=== PATIENT | female | born 1980 | race Caucasian/White ===

== ENCOUNTER 2017-02-05 18:31 | Emergency (ER) | payer MEDICAID, MEDICARE ==
[2017-02-05] MEDS ORDERED: NS 0.9% 1000 ML* 2,000 ML IV ONE (19:11)
[2017-02-05] MEDS ORDERED: LORazepam INJ* 2 MG/ML 1 ML VIAL IV ONE (19:11)
[2017-02-05] MEDS ORDERED: LORazepam INJ* 2 MG/ML 1 ML VIAL IV PUSH ONE (19:13)
[2017-02-05 19:49] LABS: Hematocrit 40 % (35-47); Hemoglobin 13.5 g/dl (12.0-16.0); Mean Corpuscular HGB Conc 34 g/dl (31-36); Mean Corpuscular Hemoglobin 29 pg (27-31); Mean Corpuscular Volume 84 fL (80-97); Mean Platelet Volume 8 um3 (7.4-10.4); Red Blood Count 4.74 10^6/ul (4.0-5.4); Red Cell Distribution Width 14 % (10.5-15); White Blood Count 8.1 10^3/ul (3.5-10.8)
[2017-02-05 20:05] LABS: ALT 38 U/L (7-52); AST 22 U/L (13-39); Albumin 4.2 g/dL (3.2-5.2); Alkaline Phosphatase 111 U/L (34-104); Anion Gap 7 mmol/L (2-11); BUN/Creatinine Ratio 21.4 (8-20); Blood Urea Nitrogen 15 mg/dL (6-24); CO2 Carbon Dioxide 27 mmol/L (22-32); Calcium 9.4 mg/dL (8.6-10.3); Chloride 105 mmol/L (101-111); Creatine Kinase 42 U/L (10-223); EGFR African American 121.1 (>60); EGFR Non-African American 94.2 (>60); Globulin 3.1 g/dL (2-4); Glucose 93 mg/dL (70-100); Magnesium 2.2 mg/dL (1.9-2.7); Potassium 3.9 mmol/L (3.5-5.0); Sodium 139 mmol/L (133-145); Total Protein 7.3 g/dL (6.4-8.9)
[2017-02-05] MEDS ORDERED: lamoTRIgine TAB(*) 25 MG PO ONE ×2 (20:21→20:22)
[2017-02-05 20:25] LABS: Alcohol < 10 mg/dL (<10)
--- NOTE | 2017-02-05 20:37 | ED ---
Gene Santos Billy, scribed for Alex Pugh MD on 02/05/17 at 1909 . Neurological HPI - HPI Summary HPI Summary: Patient is a 37 year-old female coming to [facility] for evaluation of seizure-like activity. Patient is accompanied by children and mother, who provide the history. Family reports that her symptoms have been occurring intermittently at home throughout the day. In the past, similar seizures have occurred more often with stress. Nothing appears to make her symptoms better or worse, although the family states that the patient is alert and will attempt to follow commands. - History of Current Complaint Chief Complaint: EDSeizure Stated Complaint: SEIZURE Time Seen by Provider: 02/05/17 18:34 Hx Obtained From: Family/Plating Stripper Onset/Duration: Gradual Onset, Started hours ago, Still Present Timing: Intermittent Episodes Lasting: Onset Severity: Moderate Current Severity: Moderate Seizure Severity: Moderate Neurological Deficit Location: Generalized Aggravating: Unknown Alleviating: Unknown - Allergy/Home Medications Allergies/Adverse Reactions: Allergies Allergy/AdvReac Type Severity Reaction Status Date / Time Procaine [From Novocain] Allergy Mild Unknown Verified 11/16/13 03:40 Reaction Details PMH/Surg Hx/FS Hx/Imm Hx Respiratory History: Reports: Hx Asthma Neurological History: Reports: Hx Seizures Psychiatric History: Reports: Hx Attention Deficit Hyperactivity Disorder, Hx Depression, Hx Post Traumatic Stress Disorder Infectious Disease History: No Infectious Disease History: Denies: Traveled Outside the [place] in Last 30 Days - Family History Known Family History: Positive: Unknown - Patient is adopted. - Social History Alcohol Use: Occasionally Substance Use Type: Reports: Marijuana Smoking Status (MU): Never Smoked Tobacco Review of Systems Negative: Fever Neurological: Other - seizure activity All Other Systems Reviewed And Are Negative: Yes Physical Exam - Summary Physical Exam Summary: The patient is well-nourished in no pain distress. The skin is warm and skin color reflects adequate perfusion. Diaphoresis. HEENT: The head is normocephalic and atraumatic. The pupils are equal and reactive. EOMI not assessed. The conjunctivae are clear and without drainage. Nares are patent and without drainage. Mouth reveals moist mucous membranes and the throat is without erythema and exudate. The external ears are intact. The ear canals are patent and without drainage. The tympanic membranes are intact. Neck is supple with full range of motion and non-tender. There are no carotid bruits. There is no neck vein distension. Respiratory: Chest is non-tender. Lungs are clear to auscultation and breath sounds are symmetrical and equal. Cardiovascular: Heart is regular rate and rhythm. There is no murmur or rub auscultated. There is no peripheral edema and pulses are symmetrical and equal. Abdomen: The abdomen is soft and non-tender. There are normal bowel sounds heard in all four quadrants and there is no organomegaly palpated. Musculoskeletal: There is no back pain noted. Extremities are non-tender with full range of motion. There is good capillary refill. There is no peripheral edema or calf tenderness elicited. Neurological: Patient is alert and oriented to person, place and time. There is tonic-clonic activity in all four extremities. Patient is following commands. Triage Information Reviewed: Yes Vital Signs On Initial Exam: Initial Vitals Temp Pulse Resp BP Pulse Ox 98.1 F 112 16 118/90 98 02/05/17 18:39 02/05/17 18:39 02/05/17 18:39 02/05/17 18:39 02/05/17 18:39 Vital Signs Reviewed: Yes - Ruddy Coma Scale Coma Scale Total: 14 Diagnostics - Vital Signs Vital Signs Temp Pulse Resp BP Pulse Ox 02/05/17 18:39 98.1 F 112 16 118/90 98 - Laboratory Lab Results: Lab Results 02/05/17 02/05/17 02/05/17 Range/Units 19:40 19:40 19:40 WBC 8.1 (3.5-10.8) 10^3/ul RBC 4.74 (4.0-5.4) 10^6/ul Hgb 13.5 (12.0-16.0) g/dl Hct 40 (35-47) % MCV 84 (80-97) fL MCH 29 (27-31) pg MCHC 34 (31-36) g/dl RDW 14 (10.5-15) % Plt Count 226 (150-450) 10^3/ul MPV 8 (7.4-10.4) um3 Neut % (Auto) 54.9 (38-83) % Lymph % (Auto) 37.7 (25-47) % Conway % (Auto) 5.3 (1-9) % Eos % (Auto) 1.2 (0-6) % Baso % (Auto) 0.9 (0-2) % Absolute Neuts (auto) 4.5 (1.5-7.7) 10^3/ul Absolute Lymphs (auto) 3.1 (1.0-4.8) 10^3/ul Absolute Monos (auto) 0.4 (0-0.8) 10^3/ul Absolute Eos (auto) 0.1 (0-0.6) 10^3/ul Absolute Basos (auto) 0.1 (0-0.2) 10^3/ul Absolute Nucleated RBC 0 10^3/ul Nucleated RBC % 0 INR (Anticoag Therapy) 0.85 L (0.89-1.11) Sodium 139 (133-145) mmol/L Potassium 3.9 (3.5-5.0) mmol/L Chloride 105 (101-111) mmol/L Carbon Dioxide 27 (22-32) mmol/L Anion Gap 7 (2-11) mmol/L BUN 15 (6-24) mg/dL Creatinine 0.70 (0.51-0.95) mg/dL Est GFR ( Amer) 121.1 (>60) Est GFR (Non-Af Amer) 94.2 (>60) BUN/Creatinine Ratio 21.4 H (8-20) Glucose 93 (70-100) mg/dL Lactic Acid (0.5-2.0) mmol/L Calcium 9.4 (8.6-10.3) mg/dL Magnesium 2.2 (1.9-2.7) mg/dL Total Bilirubin 0.40 (0.2-1.0) mg/dL AST 22 (13-39) U/L ALT 38 (7-52) U/L Alkaline Phosphatase 111 H (34-104) U/L Total Creatine Kinase 42 (10-223) U/L Total Protein 7.3 (6.4-8.9) g/dL Albumin 4.2 (3.2-5.2) g/dL Globulin 3.1 (2-4) g/dL Albumin/Globulin Ratio 1.4 (1-3) Serum Alcohol < 10 (<10) mg/dL 02/05/17 Range/Units 19:40 WBC (3.5-10.8) 10^3/ul RBC (4.0-5.4) 10^6/ul Hgb (12.0-16.0) g/dl Hct (35-47) % MCV (80-97) fL MCH (27-31) pg MCHC (31-36) g/dl RDW (10.5-15) % Plt Count (150-450) 10^3/ul MPV (7.4-10.4) um3 Neut % (Auto) (38-83) % Lymph % (Auto) (25-47) % Conway % (Auto) (1-9) % Eos % (Auto) (0-6) % Baso % (Auto) (0-2) % Absolute Neuts (auto) (1.5-7.7) 10^3/ul Absolute Lymphs (auto) (1.0-4.8) 10^3/ul Absolute Monos (auto) (0-0.8) 10^3/ul Absolute Eos (auto) (0-0.6) 10^3/ul Absolute Basos (auto) (0-0.2) 10^3/ul Absolute Nucleated RBC 10^3/ul Nucleated RBC % INR (Anticoag Therapy) (0.89-1.11) Sodium (133-145) mmol/L Potassium (3.5-5.0) mmol/L Chloride (101-111) mmol/L Carbon Dioxide (22-32) mmol/L Anion Gap (2-11) mmol/L BUN (6-24) mg/dL Creatinine (0.51-0.95) mg/dL Est GFR ( Amer) (>60) Est GFR (Non-Af Amer) (>60) BUN/Creatinine Ratio (8-20) Glucose (70-100) mg/dL Lactic Acid 1.2 (0.5-2.0) mmol/L Calcium (8.6-10.3) mg/dL Magnesium (1.9-2.7) mg/dL Total Bilirubin (0.2-1.0) mg/dL AST (13-39) U/L ALT (7-52) U/L Alkaline Phosphatase (34-104) U/L Total Creatine Kinase (10-223) U/L Total Protein (6.4-8.9) g/dL Albumin (3.2-5.2) g/dL Globulin (2-4) g/dL Albumin/Globulin Ratio (1-3) Serum Alcohol (<10) mg/dL Result Diagrams: 02/05/17 19:40 02/05/17 19:40 Lab Statement: Any lab studies that have been ordered have been reviewed, and results considered in the medical decision making process. Re-Evaluation - Re-Evaluation First Eval Re-Evaluation Time: 20:03 Change: Improved Comment: No longer exhibiting seizure-like activity. Patient states that she ran out of Lamictal a while ago and is also running low on Ativan. Course/Dx - Course Assessment/Plan: 37 y/o female coming to the ED for evaluation of seizures. Patient was given IV fluids and Ativan. Patient will be signed out to Dr. Zhu at shift change. - Differential Dx Differential Diagnoses Neuro: Positive: Seizure Disorder, Other - PSEUDOSEIZURE - Diagnoses Provider Diagnoses: Pseudoseizure Discharge - Discharge Plan Condition: Stable Disposition: HOME Discharge Disposition Comment: Signed out to Dr. Zhu at shift change. Patient Education Materials: Epilepsy (ED), Nonepileptic Seizures (ED) Referrals: Tonny Quezada [Primary Care Provider] - Additional Instructions: TAKE LAMICTAL 25 MG AT BEDTIME. ATIVAN 1 MG EVERY 8 HOURS NEEDED FOR SEIZURES The documentation as recorded by the Gene blount Billy accurately reflects the service I personally performed and the decisions made by me, Alex Pugh MD.
[2017-02-05] MEDS ORDERED: HYDROcodone/ACETAMIN 5-325 MG* 1 TAB PO ONE (23:00)
[2017-02-05 23:02] VITALS: BP 117/100
== END 2017-02-05 23:13 | disposition home or self-care (01) ==
LOC: ED 18:31
DX: F44.5 Conversion disorder with seizures or convulsions (principal)
CPT/HCPCS: 36415; 80053; 80320; 82550; 83605; 83735; 85025; 85610; 96374; 96376; 99284; A9270-GY; G0480; J2060

== ENCOUNTER 2024-06-18 07:23 | Inpatient (IN) ==
[2024-06-18] MEDS ORDERED: Albuterol HFA INHALER 8 gm MDI INH PRN (09:18)
[2024-06-18] MEDS ORDERED: NF:UBROGEPANT 50 MG TABLET PO PRN (09:18)
[2024-06-18] MEDS: Lidocaine PATCH 5% PATCH TRANSDERM PRN (13:12)
[2024-06-18] MEDS: Mometasone/Formoter 100/5 MDI INH SCH (21:04)
[2024-06-22 08:22] VITALS: BP 145/97
== END 2024-06-22 12:25 | disposition home or self-care (01) | DRG 880 ==
LOC: MEDTELE 07:23
PROVIDERS: ADMIT Psychiatry & Neurology Neurology; ATTEND Internal Medicine